=== PATIENT | female | born 1990 | race Two or more races ===

== ENCOUNTER 2020-03-22 20:29 | Observation (INO) | payer OTHER | END 2020-03-22 22:31 | disposition home or self-care (01) | LOC: LDRP 20:29 | PROVIDERS: ADMIT Obstetrics & Gynecology; ATTEND Obstetrics & Gynecology | DX: Z34.93 Encounter for supervision of normal pregnancy, unspecified, third trimester (principal); Z3A.35 35 weeks gestation of pregnancy | CPT/HCPCS: 59025; 76818; 81002; G0378 ==

== ENCOUNTER 2020-03-24 19:07 | Observation (INO) | payer OTHER ==
[~2020-03-24] VITALS: Ht 157.5 cm; Wt 79.4 kg
== END 2020-03-24 20:47 | disposition home or self-care (01) ==
LOC: UNDOADMOB 19:07 → LDRP 19:07 → UNDODISOB 20:47
PROVIDERS: ADMIT Specialist; ATTEND Specialist
DX: O41.03X0 Oligohydramnios, third trimester, not applicable or unspecified (principal); Z3A.35 35 weeks gestation of pregnancy
CPT/HCPCS: 59025; 76818; 81002; G0378

== ENCOUNTER 2020-03-28 10:36 | Observation (INO) | payer OTHER ==
[2020-03-28] MEDS ORDERED: PREN-96 PO (12:01)
== END 2020-03-28 12:45 | disposition home or self-care (01) ==
LOC: LDRP 10:36
PROVIDERS: ADMIT Obstetrics & Gynecology; ATTEND Obstetrics & Gynecology
DX: O41.03X0 Oligohydramnios, third trimester, not applicable or unspecified (principal); O26.893 Other specified pregnancy related conditions, third trimester; R10.9 Unspecified abdominal pain; Z3A.36 36 weeks gestation of pregnancy
CPT/HCPCS: 59025; 76818; 81002; G0378

== ENCOUNTER 2020-04-18 19:05 | Inpatient (IN) | payer OTHER ==
[~2020-04-18] VITALS: Ht 30.5 cm; Wt 0.5 kg
[~2020-04-18 19:05] MED LIST: PREN-96 PO
[2020-04-18] MEDS ORDERED: BUTORPHANOL TARTRATE 2 MG/1 ML VIAL IV PRN (20:30)
[2020-04-18] MEDS ORDERED: DERMOPLAST 60ML BOTTLE TOP PRN (20:30)
[2020-04-18] MEDS ORDERED: PHISODERM TOP SOLN 240ML BTL TOP PRN (20:30)
[2020-04-18] MEDS ORDERED: WITCH HAZEL-GLYCERIN PAD TOP PRN (20:30)
[2020-04-18] MEDS ORDERED: PROMETHAZINE HCL 25 MG/ML 1ML IV PRN (20:30)
[2020-04-18] MEDS ORDERED: LACTATED RINGER'S 1,000 ML IV SCH (20:30)
[2020-04-18] MEDS ORDERED: LIDOCAINE 2%HCL (LOCAL ANESTH.) INJ 20ML MDV IJ ONE (20:30)
[2020-04-18 21:15] LABS: Basophils # (auto) 0.1 10 ^3/uL (0-0.2); Basophils % (auto) 0.4 % (0.0-2.0); Eosinophils # (auto) 0 10 ^3/uL (0-0.8); Eosinophils % (auto) 0.2 % (0.0-7.0); Hematocrit 36.9 % (36.0-46.0); Hemoglobin 12.2 g/dL (12.2-16.2); Lymphocytes # (auto) 2.3 10 ^3/uL (0.4-5.4); Lymphocytes % (auto) 16.3 % (10.0-50.0); Mean Corpuscular Volume 94.1 fL (80.0-100.0); Monocytes # (auto) 0.7 10 ^3/uL (0-1.3); Monocytes % (auto) 5.1 % (0.0-12.0); Nucleated Red Blood Cells % 0.1 %; Platelet Count (auto) 264 10^3/uL (140-450); Red Blood Cells 3.93 10^6/uL (4.0-5.20); Red Cell Distribution Width 14.1 % (11.8-14.3); White Blood Cell 14.1 10^3/uL (4.4-10.8)
[2020-04-18 21:26] LABS: Urine Bacteria FEW /hpf (None Seen); Urine Blood 2+ /uL (Negative); Urine Specific Gravity 1.006 (1.001-1.035); Urine WBC 58 /hpf (0 - 5)
[2020-04-18 21:30] LABS: INR 0.95 (0.9-1.15); Partial Thromboplastin Time 26.5 sec (23.0-31.2)
[2020-04-18 21:32] LABS: Alcohol, Urine < 3.0 mg/dL (0-10); Amphetamine Screen, Urine NEGATIVE (NEGATIVE); Barbiturate Scree,Urine NEGATIVE (NEGATIVE); Benzodiazephine Screen, Urine NEGATIVE (NEGATIVE); Cannabinoid Screen, Urine NEGATIVE (NEGATIVE); Cocaine Screen, Urine NEGATIVE (NEGATIVE); Opiate Scree,Urine NEGATIVE (NEGATIVE); Phencyclidine Screen, Urine NEGATIVE (NEGATIVE)
[2020-04-18 21:39] LABS: Albumin 2.7 g/dL (3.4-5.0); BUN/Creatinine Ratio 13.1; Bilirubin, Total 0.6 mg/dL (0.2-1.0); Calcium 9.3 mg/dL (8.5-10.1); Potassium 3.8 mmol/L (3.5-5.1); Total Protein 7.4 g/dL (6.4-8.2)
[2020-04-18] MEDS ORDERED: ROPIVACAINE HCL 200 ML EPI SCH (22:15)
[2020-04-18] MEDS ORDERED: NALOXONE HCL 0.4 MG/ML VIAL IV ONE ×2 (22:15→23:15)
[2020-04-18] MEDS ORDERED: fentaNYL CITRATE 100 MCG/2 ML VL IV ONE (22:15)
[2020-04-18] MEDS ORDERED: ePHEDrine SULFATE 50 MG/ML AMP IV ONE ×2 (22:15→23:15)
[2020-04-18] MEDS ORDERED: LIDOCAINE HCL 2 %PF INJ 10ML AMP IJ ONE (22:15)
[2020-04-18] MEDS ORDERED: fentaNYL CITRATE 100 MCG/2 ML VL ONE (22:39)
[2020-04-18] MEDS ORDERED: ePHEDrine SULFATE 50 MG/ML AMP ONE (22:39)
[2020-04-18] MEDS ORDERED: ROPIVACAINE HCL 400mg/200ml BAG (2mg/ml) ONE (22:39)
[2020-04-18] MEDS ORDERED: LACTATED RINGER'S 500 ML IV ONE (23:15)
[2020-04-18] MEDS ORDERED: SODIUM CHLORIDE 0.9% 500 ML IV PRN (23:15)
[2020-04-18] MEDS ORDERED: ROPIVACAINE HCL 100 ML EPI SCH (23:15)
[2020-04-18] MEDS ORDERED: LACT. RINGERS/OXYTOCIN 20UNITS 1,000 ML IV ONE (23:30)
[2020-04-18] MEDS ORDERED: LACT. RINGERS/OXYTOCIN 20UNITS 1,000 ML IV SCH (23:30)
[2020-04-19] MEDS ORDERED: METHYLERGONOVINE MALEATE 0.2 MG/ML AMP IM ONE ×2 (05:27→05:30)
[2020-04-19] MEDS ORDERED: ACETAMINOPHEN 325 MG TAB PO PRN (06:45)
[2020-04-19] MEDS: IBUPROFEN 600 MG TAB PO PRN ×4 (07:41→21:19)
[2020-04-19 12:00] VITALS: BP 112/59
[2020-04-19] MEDS: DOCUSATE CALCIUM 240 MG CAP PO SCH (12:20)
[2020-04-19 15:10] VITALS: BP 109/58
[2020-04-19 19:00] VITALS: BP 119/79
[2020-04-19 22:50] VITALS: BP 117/84
[2020-04-20] MEDS: IBUPROFEN 600 MG TAB PO PRN ×2 (02:45→08:38)
[2020-04-20 02:48] VITALS: BP 118/69
[2020-04-20 05:07] LABS: RPR Non Reactive (Non Reactive)
[2020-04-20] MEDS: DOCUSATE CALCIUM 240 MG CAP PO SCH (09:26)
[2020-04-20 11:00] VITALS: BP 126/71
== END 2020-04-20 11:15 | disposition home or self-care (01) | DRG 806 ==
LOC: LDRP 19:05 → OBSVTOIN 20:05 → LDRP 21:54
PROVIDERS: ADMIT Obstetrics & Gynecology; ATTEND Obstetrics & Gynecology
PROC: 10D07Z6 Extraction of Products of Conception, Vacuum, Via Natural or Artificial Opening (ICD-10-PCS; principal; 2020-04-19)
PROC: 0KQM0ZZ Repair Perineum Muscle, Open Approach (ICD-10-PCS; 2020-04-19)
PROC: 0W8NXZZ Division of Female Perineum, External Approach (ICD-10-PCS; 2020-04-19)
PROC: 10907ZC Drainage of Amniotic Fluid, Therapeutic from Products of Conception, Via Natural or Artificial Opening (ICD-10-PCS; 2020-04-19)
PROC: 3E0R3BZ Introduction of Anesthetic Agent into Spinal Canal, Percutaneous Approach (ICD-10-PCS; 2020-04-19)
PROC: 00HU33Z Insertion of Infusion Device into Spinal Canal, Percutaneous Approach (ICD-10-PCS; 2020-04-19)
DX: O77.0 Labor and delivery complicated by meconium in amniotic fluid (principal); O41.03X0 Oligohydramnios, third trimester, not applicable or unspecified; Z37.0 Single live birth; O43.129 Velamentous insertion of umbilical cord, unspecified trimester; Z20.828 Contact with and (suspected) exposure to other viral communicable diseases; O70.1 Second degree perineal laceration during delivery; Z3A.39 39 weeks gestation of pregnancy; O76 Abnormality in fetal heart rate and rhythm complicating labor and delivery
CPT/HCPCS: 36415; 59025; 59409; 62282; 76818; 80053; 80307; 81001; 81002; 85025; 85610; 85730; 86592; 86850; 86900; 86901; 87426; 94760; 96360; 96361; 96366; 96372; G0378; J2590

== ENCOUNTER 2021-12-14 09:00 | Observation (INO) | payer OTHER | END 2021-12-14 11:51 | disposition home or self-care (01) | LOC: LDRP 09:00 → UNDOADMOB 09:00 → LDRP 09:56 | PROVIDERS: ADMIT Obstetrics & Gynecology; ATTEND Obstetrics & Gynecology | DX: O24.419 Gestational diabetes mellitus in pregnancy, unspecified control (principal); Z3A.30 30 weeks gestation of pregnancy | CPT/HCPCS: 59025; 76818; 81002; 82962; 94760; G0378 ==

== ENCOUNTER 2021-12-20 08:02 | Observation (INO) | payer OTHER ==
[2021-12-20] MEDS ORDERED: METF-370 PO (09:01)
== END 2021-12-20 09:38 | disposition home or self-care (01) ==
LOC: LDRP 08:02 → UNDOADMOB 08:02 → LDRP 08:34
PROVIDERS: ADMIT Obstetrics & Gynecology; ATTEND Obstetrics & Gynecology
DX: O24.419 Gestational diabetes mellitus in pregnancy, unspecified control (principal); Z3A.31 31 weeks gestation of pregnancy; Z87.891 Personal history of nicotine dependence
CPT/HCPCS: 59025; 76818; 81002; 82948; 82962; 94760; G0378

== ENCOUNTER 2021-12-27 09:00 | Observation (INO) | payer OTHER ==
[~2021-12-27 09:00] MED LIST changes: +METF-370 PO
== END 2021-12-27 10:17 | disposition home or self-care (01) ==
LOC: LDRP 09:00
PROVIDERS: ADMIT Obstetrics & Gynecology; ATTEND Obstetrics & Gynecology
DX: O24.419 Gestational diabetes mellitus in pregnancy, unspecified control (principal); O13.3 Gestational [pregnancy-induced] hypertension without significant proteinuria, third trimester; Z3A.32 32 weeks gestation of pregnancy
CPT/HCPCS: 59025; 76818; 81002; 82948; 82962; 94760; G0378

== ENCOUNTER 2022-01-03 08:05 | Observation (INO) | payer OTHER | END 2022-01-03 09:33 | disposition home or self-care (01) | LOC: LDRP 08:05 → UNDOADMOB 08:05 → LDRP 08:22 | PROVIDERS: ADMIT Obstetrics & Gynecology; ATTEND Obstetrics & Gynecology | DX: O24.419 Gestational diabetes mellitus in pregnancy, unspecified control (principal); Z3A.33 33 weeks gestation of pregnancy | CPT/HCPCS: 59025; 76818; 81002; 82948; 82962; 94760; G0378 ==

== ENCOUNTER 2022-01-08 08:07 | Observation (INO) | payer OTHER | END 2022-01-08 09:39 | disposition home or self-care (01) | LOC: LDRP 08:07 → UNDOADMOB 08:07 → LDRP 08:40 | PROVIDERS: ADMIT Obstetrics & Gynecology; ATTEND Obstetrics & Gynecology | DX: O24.419 Gestational diabetes mellitus in pregnancy, unspecified control (principal); Z3A.34 34 weeks gestation of pregnancy | CPT/HCPCS: 59025; 76818; 81002; 82948; 82962; 94760; G0378 ==

== ENCOUNTER 2022-01-19 08:09 | Observation (INO) | payer OTHER ==
[2022-01-19] MEDS ORDERED: GLYB2.5T8 PO (09:08)
== END 2022-01-19 09:46 | disposition home or self-care (01) ==
LOC: LDRP 08:09
PROVIDERS: ADMIT Obstetrics & Gynecology; ATTEND Obstetrics & Gynecology
DX: O24.419 Gestational diabetes mellitus in pregnancy, unspecified control (principal); Z3A.35 35 weeks gestation of pregnancy
CPT/HCPCS: 59025; 76818; 82948; 82962; 94760; G0378

== ENCOUNTER 2022-01-21 07:36 | Observation (INO) | payer OTHER ==
[~2022-01-21] VITALS: Ht 157.5 cm; Wt 83.5 kg
[~2022-01-21 07:36] MED LIST changes: +GLYB2.5T8 PO; -METF-370 PO
== END 2022-01-24 10:42 | disposition home or self-care (01) ==
LOC: LDRP 01-24 09:00 → UNDOADMOB 01-24 09:00 → LDRP 01-24 09:29
PROVIDERS: ADMIT Obstetrics & Gynecology; ATTEND Obstetrics & Gynecology
DX: O24.419 Gestational diabetes mellitus in pregnancy, unspecified control (principal); Z3A.36 36 weeks gestation of pregnancy
CPT/HCPCS: 59025; 76818; 81002; 82948; 82962; 94760; G0378

== ENCOUNTER 2022-01-31 08:52 | Observation (INO) | payer OTHER | END 2022-01-31 10:30 | disposition home or self-care (01) | LOC: LDRP 08:52 → UNDOADMOB 08:56 → LDRP 08:56 → UNDODISOB 10:30 | PROVIDERS: ADMIT Obstetrics & Gynecology; ATTEND Obstetrics & Gynecology | DX: O24.419 Gestational diabetes mellitus in pregnancy, unspecified control (principal); Z3A.37 37 weeks gestation of pregnancy | CPT/HCPCS: 59025; 76818; 81002; 82962; G0378 ==

== ENCOUNTER 2022-02-04 08:21 | Observation (INO) | payer OTHER | END 2022-02-04 10:00 | disposition home or self-care (01) | LOC: LDRP 08:21 → UNDOADMOB 08:21 → LDRP 08:57 → UNDODISOB 10:00 | PROVIDERS: ADMIT Obstetrics & Gynecology Obstetrics; ATTEND Obstetrics & Gynecology Obstetrics | DX: O24.419 Gestational diabetes mellitus in pregnancy, unspecified control (principal); O99.891 Other specified diseases and conditions complicating pregnancy; M54.50 Low back pain, unspecified; Z3A.37 37 weeks gestation of pregnancy | CPT/HCPCS: 59025; 76818; 81002; 82948; 82962; G0378 ==

== ENCOUNTER 2022-02-07 08:18 | Observation (INO) | payer OTHER | END 2022-02-07 09:20 | disposition home or self-care (01) | LOC: LDRP 08:18 → UNDOADMOB 08:18 → LDRP 08:35 → UNDODISOB 09:20 | PROVIDERS: ADMIT Obstetrics & Gynecology; ATTEND Obstetrics & Gynecology | DX: O24.419 Gestational diabetes mellitus in pregnancy, unspecified control (principal); Z3A.38 38 weeks gestation of pregnancy | CPT/HCPCS: 59025; 76818; 81002; 82948; 82962; 94760; G0378 ==

== ENCOUNTER → 2022-02-13 | Outpatient (CLI) | payer OTHER ==
[2022-02-13 10:55] LABS: Basophils # (auto) 0.1 10 ^3/uL (0-0.2); Basophils % (auto) 0.9 % (0.0-2.0); Eosinophils # (auto) 0 10 ^3/uL (0-0.8); Eosinophils % (auto) 0.2 % (0.0-7.0); Hematocrit 34.1 % (36.0-46.0); Hemoglobin 11.2 g/dL (12.2-16.2); Lymphocytes # (auto) 2.6 10 ^3/uL (0.4-5.4); Lymphocytes % (auto) 26.2 % (10.0-50.0); Mean Corpuscular Hemoglobin 28.4 pg (28.0-32.0); Mean Corpuscular Hgb Conc. 32.8 g/dL (32.0-36.0); Mean Corpuscular Volume 86.4 fL (80.0-100.0); Monocytes # (auto) 0.6 10 ^3/uL (0-1.3); Monocytes % (auto) 5.7 % (0.0-12.0); Neutrophils # (auto) 6.7 10 ^3/uL (1.6-8.6); Red Blood Cells 3.95 10^6/uL (4.0-5.20); Red Cell Distribution Width 14.3 % (11.8-14.3)
[2022-02-14 06:06] LABS: RPR Non Reactive (Non Reactive)
== END | disposition home or self-care (01) ==
LOC: LAB 10:05
PROVIDERS: ATTEND Obstetrics & Gynecology
DX: Z34.80 Encounter for supervision of other normal pregnancy, unspecified trimester (principal); Z3A.00 Weeks of gestation of pregnancy not specified
CPT/HCPCS: 36415; 84112; 85025; 86592

== ENCOUNTER 2022-02-14 08:22 | Observation (INO) | payer OTHER | END 2022-02-14 10:40 | disposition home or self-care (01) | LOC: UNDOADMOB 08:22 → LDRP 08:22 → UNDODISOB 10:40 | PROVIDERS: ADMIT Obstetrics & Gynecology; ATTEND Obstetrics & Gynecology | DX: O24.419 Gestational diabetes mellitus in pregnancy, unspecified control (principal); Z3A.39 39 weeks gestation of pregnancy | CPT/HCPCS: 59025; 76818; 81002; 82948; 82962; 94760; G0378 ==

== ENCOUNTER 2022-02-14 22:52 | Inpatient (IN) | payer OTHER ==
[~2022-02-14] VITALS: Ht 157.5 cm; Wt 78.0 kg
[2022-02-15] MEDS ORDERED: LIDOCAINE 2%HCL (LOCAL ANESTH.) INJ 10ml MDV IJ PRN (00:15)
[2022-02-15] MEDS ORDERED: PROMETHAZINE HCL 25 MG/ML 1ML IM PRN (00:15)
[2022-02-15] MEDS ORDERED: BUTORPHANOL TARTRATE 2 MG/1 ML VIAL IV PRN ×2 (00:15)
[2022-02-15] MEDS ORDERED: WITCH HAZEL-GLYCERIN PAD TOP PRN (00:15)
[2022-02-15] MEDS ORDERED: LACT. RINGERS/OXYTOCIN 20UNITS 500 ML IV ONE ×4 (00:30→08:30)
[2022-02-15] MEDS ORDERED: miSOPROStol 50 MCG per PRE-CUT 1/2 TAB PO PRN (00:30)
[2022-02-15] MEDS: LACTATED RINGER'S 1,000 ML IV SCH ×2 (00:43→05:13)
[2022-02-15 01:26] LABS: Basophils # (auto) 0 10 ^3/uL (0-0.2); Basophils % (auto) 0.3 % (0.0-2.0); Eosinophils # (auto) 0.1 10 ^3/uL (0-0.8); Eosinophils % (auto) 0.6 % (0.0-7.0); Hematocrit 29.9 % (36.0-46.0); Hemoglobin 10.1 g/dL (12.2-16.2); Lymphocytes # (auto) 2.7 10 ^3/uL (0.4-5.4); Lymphocytes % (auto) 30.7 % (10.0-50.0); Mean Corpuscular Hemoglobin 29.2 pg (28.0-32.0); Mean Corpuscular Hgb Conc. 33.7 g/dL (32.0-36.0); Mean Corpuscular Volume 86.7 fL (80.0-100.0); Monocytes # (auto) 0.7 10 ^3/uL (0-1.3); Monocytes % (auto) 7.3 % (0.0-12.0); Neutrophils # (auto) 5.4 10 ^3/uL (1.6-8.6); Neutrophils % (auto) 61.1 % (37.0-80.0); Nucleated Red Blood Cells % 0.1 %; Red Blood Cells 3.45 10^6/uL (4.0-5.20); Red Cell Distribution Width 14.3 % (11.8-14.3); White Blood Cell 8.9 10^3/uL (4.4-10.8)
[2022-02-15 01:40] LABS: INR 0.96 (0.9-1.15)
[2022-02-15 01:43] LABS: Albumin 2.3 g/dL (3.4-5.0); Calcium 8.5 mg/dL (8.5-10.1); Potassium 3.7 mmol/L (3.5-5.1)
[2022-02-15 01:44] LABS: Amphetamine Screen, Urine NEGATIVE (NEGATIVE); Barbiturate Scree,Urine NEGATIVE (NEGATIVE); Benzodiazephine Screen, Urine NEGATIVE (NEGATIVE); Cannabinoid Screen, Urine NEGATIVE (NEGATIVE); Cocaine Screen, Urine NEGATIVE (NEGATIVE); Opiate Scree,Urine NEGATIVE (NEGATIVE); Phencyclidine Screen, Urine NEGATIVE (NEGATIVE)
[2022-02-15 01:45] LABS: BUN/Creatinine Ratio 20.4
[2022-02-15 01:48] LABS: Bilirubin, Total 0.3 mg/dL (0.2-1.0); Total Protein 6.4 g/dL (6.4-8.2)
[2022-02-15 01:49] LABS: Urine Bacteria FEW /hpf (None Seen); Urine Blood Negative /uL (Negative); Urine Specific Gravity 1.007 (1.001-1.035); Urine WBC 1 /hpf (0 - 5)
[2022-02-15] MEDS: PHISODERM TOP SOLN 240ML BTL TOP PRN ×2 (05:13→14:33)
[2022-02-15] MEDS: DERMOPLAST 60ML BOTTLE TOP PRN ×2 (05:13→14:33)
[2022-02-15] MEDS ORDERED: LACT. RINGERS/OXYTOCIN 20UNITS 1,000 ML IV SCH (08:00)
[2022-02-15] MEDS ORDERED: TERBUTALINE SULFATE 1 MG/ML 1ML VIAL SC PRN (08:00)
[2022-02-15] MEDS ORDERED: LACTATED RINGER'S 1,000 ML IV ONE (08:30)
[2022-02-15] MEDS ORDERED: LIDOCAINE HCL 2 %PF INJ 10ML AMP IJ ONE (08:30)
[2022-02-15] MEDS ORDERED: ROPIVACAINE HCL 200 ML EPI SCH (08:30)
[2022-02-15] MEDS ORDERED: LACTATED RINGER'S 500 ML IV ONE (08:30)
[2022-02-15] MEDS ORDERED: ePHEDrine SULFATE 50 MG/ML AMP IV ONE (08:30)
[2022-02-15] MEDS ORDERED: METHYLERGONOVINE MALEATE 0.2 MG/ML AMP IM ONE (12:44)
[2022-02-15] MEDS: IBUPROFEN 800 MG TAB PO SCH ×2 (14:30→22:56)
[2022-02-15] MEDS ORDERED: ACETAMINOPHEN 325 MG TAB PO PRN (14:30)
[2022-02-15] MEDS ORDERED: ONDANSETRON ODT 4 MG TAB PO PRN (14:30)
[2022-02-15 14:54] VITALS: BP 119/59
[2022-02-15 19:20] VITALS: BP 120/61
[2022-02-15] MEDS ORDERED: DOCUSATE SOD 100 MG CAP PO SCH (22:00)
[2022-02-15 23:00] VITALS: BP 120/58
[2022-02-16 03:10] VITALS: BP 121/66
[2022-02-16 06:44] VITALS: BP 91/53
[2022-02-16 07:06] LABS: RPR Non Reactive (Non Reactive)
[2022-02-16] MEDS: IBUPROFEN 800 MG TAB PO SCH ×2 (08:03→11:58)
[2022-02-16] MEDS ORDERED: IBUP800T26 PO (09:09)
[2022-02-16 11:04] VITALS: BP 101/47
[2022-02-16 15:06] VITALS: BP 115/67
[2022-02-16 16:16] VITALS: BP 115/67
== END 2022-02-16 16:16 | disposition home or self-care (01) | DRG 807 ==
LOC: LDRP 22:52 → UNDOADMIN 22:52 → LDRP 02-15 00:16
PROVIDERS: ADMIT Obstetrics & Gynecology; ATTEND Obstetrics & Gynecology
PROC: 10E0XZZ Delivery of Products of Conception, External Approach (ICD-10-PCS; principal; 2022-02-15)
PROC: 0HQ9XZZ Repair Perineum Skin, External Approach (ICD-10-PCS; 2022-02-15)
PROC: 3E0R3BZ Introduction of Anesthetic Agent into Spinal Canal, Percutaneous Approach (ICD-10-PCS; 2022-02-15)
PROC: 00HU33Z Insertion of Infusion Device into Spinal Canal, Percutaneous Approach (ICD-10-PCS; 2022-02-15)
PROC: 3E033VJ Introduction of Other Hormone into Peripheral Vein, Percutaneous Approach (ICD-10-PCS; 2022-02-15)
DX: O24.429 Gestational diabetes mellitus in childbirth, unspecified control (principal); Z37.0 Single live birth; O77.0 Labor and delivery complicated by meconium in amniotic fluid; Z3A.39 39 weeks gestation of pregnancy; Z20.822 Contact with and (suspected) exposure to COVID-19; Z91.030 Bee allergy status; O70.0 First degree perineal laceration during delivery
CPT/HCPCS: 36415; 59025; 59409; 80053; 80307; 81001; 81002; 82948; 82962; 85025; 85610; 85730; 86592; 86850; 86900; 86901; 94760; 96360; 96361; 96372; G0378; J2590; Q0162